=== PATIENT | male | born 1970 | race Caucasian/White ===

== ENCOUNTER 2021-12-15 08:58 | Emergency (ER) | payer OTHER, SELFPAY ==
[2021-12-15 09:04] VITALS: BP 144/84; BP 156/82; PULSE 64; PULSE 98; RESP 20; TEMP 36.6; O2SAT 100; O2SAT 99
--- NOTE | 2021-12-15 09:21 | ED.GENADULT ---
HPI - General Adult General Chief complaint: Nausea/Vomiting/Diarrhea <KATT Ewing - Last Filed: 12/15/21 11:12> Stated complaint: n/v x 5 days <KATT Ewing - Last Filed: 12/15/21 11:12> Time Seen by Provider: 12/15/21 09:21 <KATT Ewing Last Filed: 12/15/21 11:12> Source: patient <KATT Ewing Last Filed: 12/15/21 11:12> Mode of arrival: ambulatory <KATT Ewing Last Filed: 12/15/21 11:12> Limitations: no limitations <KATT Ewing Last Filed: 12/15/21 11:12> History of Present Illness HPI narrative: Patient is a 51 year old male presenting to the emergency department today with nausea and vomiting. Patient states that for the last few days, he has had increased nausea and vomiting and generally feeling unwell. Patient denies any dizziness, lightheadedness, abdominal pain, fever, chills, blurry vision, double vision, loss of vision, chest pain, difficulty breathing, shortness of breath, back pain, night sweats, pain with urination, increased urinary frequency, increased urinary urgency, blood in his urine or stool, syncope or a near syncopal episode, recent trauma or falls, bowel incontinence, bladder incontinence, bowel retention, bladder retention, or any other complaints at this time. <KATT Ewing Last Filed: 12/15/21 11:12> Onset (ago): day(s) <KATT Ewing Last Filed: 12/15/21 11:12> Treatments prior to arrival: none <KATT Ewing Last Filed: 12/15/21 11:12> Related Data Home medications: Previous Rx's Medication Instructions Recorded ondansetron 4 mg disintegrating 4 mg PO Q8H 3 Days #9 tab 12/15/21 tablet <KATT Ewing Last Filed: 12/15/21 11:12> Allergies/adverse reactions: Allergies Allergy/AdvReac Type Severity Reaction Status Date / Time No Known Allergies Allergy Verified 12/15/21 09:22 <KATT Ewing Last Filed: 12/15/21 11:12> Review of Systems Constitutional: Constitutional: Reports no additional constitutional complaints, Denies chills, Denies fever(s) and Denies night sweats <KATT Ewing Last Filed: 12/15/21 11:12> Eyes: Eyes: Reports no additional eye complaints, Denies blurry vision, Denies change in vision, Denies diplopia, Denies eye discharge, Denies loss of vision and Denies eye pain <KATT Ewing Last Filed: 12/15/21 11:12> ENT: Denies dizziness <KATT Ewing - Last Filed: 12/15/21 11:12> Cardiovascular: Cardiovascular: Reports no additional cardiovascular complaints, Denies chest pain, Denies lightheadedness, Denies Loss of Consciousness and Denies dyspnea <KATT Ewing - Last Filed: 12/15/21 11:12> Respiratory: Respiratory: Reports no additional respiratory complaints and Denies dyspnea <KATT Ewing Last Filed: 12/15/21 11:12> Gastrointestinal: Gastrointestinal: Reports no additional gastrointestinal complaints, Denies abdominal pain, Denies melena, Denies hematochezia, Denies change in bowel habits, Denies change in stool character, Reports nausea and Reports vomiting <KATT Ewing - Last Filed: 12/15/21 11:12> Genitourinary: Genitourinary: Reports no additional male genitourinary complaints, Denies hematuria, Denies oliguria, Denies difficulty urinating, Denies dysuria, Denies urinary frequency, Denies urinary hesitancy, Denies urinary incontinence and Denies urinary urgency <KATT Ewing Last Filed: 12/15/21 11:12> Musculoskeletal: Musculoskeletal: Reports no additional musculoskeletal complaints, Denies numbness and Denies tingling <KATT Ewing Last Filed: 12/15/21 11:12> Neurologic: Denies dizziness, Denies loss of vision, Denies numbness and Denies tingling <KATT Ewing Last Filed: 12/15/21 11:12> Psychiatric: Psychiatric: Reports no additional psychiatric complaints <KATT Ewing Last Filed: 12/15/21 11:12> Endocrine: Endocrine: Reports no additional endocrine complaints <KATT Ewing - Last Filed: 12/15/21 11:12> Hematologic/Lymphatic: Hematologic/Lymphatic: Reports no additional hematologic/lymphatic complaints <KATT Ewing - Last Filed: 12/15/21 11:12> Allergic/Immunologic: Allergic/Immunologic: Reports no additional allergic/immunologic complaints <KATT Ewing - Last Filed: 12/15/21 11:12> PMFSH Past Medical History Attestation statement: The following information was validated with the patient. <KATT Ewing - Last Filed: 12/15/21 11:12> Source: old records reviewed <KATT Ewing - Last Filed: 12/15/21 11:12> Medical History: Medical History No known health problems No known health problems <KATT Ewing - Last Filed: 12/15/21 11:12> Social History Social History: Social History Patient Tobacco Use Status: Current everyday Tobacco user Smoked in Last 30 Days: Yes Use of substances other than those prescribed or required for medical reasons: Yes Substance Use Type: Heroin Advance Directives: No Advance Directives Information Provided: No <KATT Ewing - Last Filed: 12/15/21 11:12> Physical Exam ED Vital Signs: Vital Signs - 24 hr 12/15/21 09:04 Temperature 97.9 F Pulse Rate 64 Respiratory Rate 20 Blood Pressure 144/84 H Pulse Oximetry 100 BMI result Body Mass Index 20.0 <KATT Ewing - Last Filed: 12/15/21 11:12> Const General: cooperative, no acute distress, alert and awake <KATT Ewing - Last Filed: 12/15/21 11:12> Nutritional Appearance: well nourished <KATT Ewing - Last Filed: 12/15/21 11:12> Orientation/consciousness: patient oriented x3 <KATT Ewing - Last Filed: 12/15/21 11:12> Limitations: no limitations <KATT Ewing - Last Filed: 12/15/21 11:12> HENMT Head: Yes normal to inspection and Yes atraumatic <Kaci Steel OR - Last Filed: 12/15/21 11:12> Ears: hearing grossly normal bilaterally and external ears normal <Kaci Steel OR - Last Filed: 12/15/21 11:12> General nose exam: Normal external nose present, no nasal discharge noted and no epistaxis <Kaci Steel OR - Last Filed: 12/15/21 11:12> Face and sinus: Yes normal facial exam, No abrasion and No laceration <Kaci Steel OR - Last Filed: 12/15/21 11:12> Mouth: Normal oral and palatal mucosa present, no drooling and no muffled voice <Kaci Gradykirit OR - Last Filed: 12/15/21 11:12> Eyes General: appearance normal, both eyes and all related structures <Kaci Steel OR - Last Filed: 12/15/21 11:12> Periorbital: periorbital findings normal <Kaci Steel OR - Last Filed: 12/15/21 11:12> Eyelids: Yes eyelids normal <Kaci Steel OR - Last Filed: 12/15/21 11:12> Conjunctivae: conjunctivae normal <Kaci Gradykirit OR - Last Filed: 12/15/21 11:12> Pupils: Equal, round and reactive pupils present <Kaci Steel OR - Last Filed: 12/15/21 11:12> EOM: EOMs intact bilaterally <Kaci Gradykirit OR - Last Filed: 12/15/21 11:12> Neck Neck: Yes normal visual inspection, Yes full ROM and Yes no lymphadenopathy <Kaci Gradykirit OR - Last Filed: 12/15/21 11:12> Chest Chest palpation & inspection: normal inspection of the chest <Kaci GradyKATT beth - Last Filed: 12/15/21 11:12> Resp Effort & Inspection: normal respiratory effort and able to speak in complete sentences <Kaci GradyKATT beth - Last Filed: 12/15/21 11:12> Auscultation: clear to auscultation bilaterally <Kacisaurav GradyKATT beth - Last Filed: 12/15/21 11:12> Cardio Rate: regular rate <KATT Ewing Last Filed: 12/15/21 11:12> Rhythm: regular rhythm <Kaci SteelKATT - Last Filed: 12/15/21 11:12> GI Inspection: Yes normal to inspection <Kaci SteelKATT - Last Filed: 12/15/21 11:12> Neuro General: patient oriented x3 and moves all extremities <Kaci SteelKATT - Last Filed: 12/15/21 11:12> Cranial nerves: Yes Equal, round and reactive pupils present <Kaci SteelKATT - Last Filed: 12/15/21 11:12> Cognition (Neuro): normal cognition <Kaci SteelKATT - Last Filed: 12/15/21 11:12> Motor exam (neuro): 5/5 motor strength present throughout <Kaci SteelKATT - Last Filed: 12/15/21 11:12> Sensory Exam: Normal double simultaneous stimulation for sensation <Kaci GradyKATT beth - Last Filed: 12/15/21 11:12> Coordination: [id number] test normal <Kaci Steel OR - Last Filed: 12/15/21 11:12> Extrem General: Yes normal to inspection, Yes full ROM and Yes capillary refill normal <Kaci GradyKATT beth - Last Filed: 12/15/21 11:12> Psych Appearance: grossly normal <Kaci SteelKATT - Last Filed: 12/15/21 11:12> Mental Status: mental status grossly normal <Kaci GradyKATT beth - Last Filed: 12/15/21 11:12> Affect: normal affect <Kaci GradyKATT beth - Last Filed: 12/15/21 11:12> Attitude: cooperative <Kaci GradyKATT beth - Last Filed: 12/15/21 11:12> Thought process: Normal thought process present <Kacisaurav GradyKATT beth - Last Filed: 12/15/21 11:12> Thought content: Normal thought content present <Kaci GradyKATT beth - Last Filed: 12/15/21 11:12> Insight: Good insight present (Psych) <Kacisaurav GradyKATT beth - Last Filed: 12/15/21 11:12> Medical Decision Making MDM Narrative Medical decision making narrative: Patient is a 51 year old male presenting to the emergency department today with nausea and vomiting. Patient's physical exam was unremarkable. Patient's blood work was unremarkable. Patient's EKG was unremarkable. Patient's rapid Influenza was positive. I explained my physical exam findings as well as all test results to the patient. I answered all questions asked by the patient. Patient received IV fluids and IV Zofran which he stated helped his symptoms significantly. I stressed the importance of the patient taking his medication as prescribed. I stressed the importance of the patient following up with his primary care provider. I stressed the importance of the patient returning to the emergency department immediately if his symptoms were to worsen or if he were to develop any dizziness, shortness of breath, difficulty breathing, chest pain, blurry vision, loss of vision, nausea, vomiting, abdominal pain, fever, chills, back pain, or any other complaints. Patient verbalized agreement and understanding with this treatment plan and discharge. <KATT Ewing - Last Filed: 12/15/21 11:12> Differential Diagnosis Differential Diagnosis: influenza, nausea <KATT Ewing - Last Filed: 12/15/21 11:12> Medical Records Medical records reviewed: Yes I reviewed the patient's medical records. <KATT Ewing - Last Filed: 12/15/21 11:12> Lab Data Lab results reviewed: Yes I reviewed the patient's lab results. <KATT Ewing - Last Filed: 12/15/21 11:12> Result diagrams: : 12/15/21 10:11 12/15/21 09:40 <KATT Ewing - Last Filed: 12/15/21 11:12> Labs: Lab Results 12/15/21 12/15/21 12/15/21 Range/Units 09:40 09:40 09:40 WBC (4.8-10.8) X10*3/uL RBC (4.60-5.80) X10*6/uL Hgb (14.0-18.0) g/dl Hct (42.0-52.0) % MCV (80.0-98.0) fL MCH (27.0-33.0) pg MCHC (31.0-36.0) g/dl RDW (11.0-16.0) % Plt Count (160-400) X10*3/uL MPV (9.4-12.4) fL Immature Gran % (Auto) (0.0-0.4) % Neut % (Auto) (45-73) % Lymph % (Auto) (20-40) % [place] % (Auto) (2-11) % Eos % (Auto) (0-4) % Baso % (Auto) (0-2) % Lymph # (Auto) (1.2-4.9) X10*3/uL [place] # (Auto) (0.1-1.2) X10*3/uL Eos # (Auto) (0.0-0.4) X10*3/uL Baso # (Auto) (0.0-0.2) X10*3/uL Abs Immat Gran (auto) (0.00-0.03) X10*3/uL Absolute Neuts (auto) (2.0-8.3) x10*3/uL Absolute Nucleated RBC (0.0-0.012) X10*3/uL Nucleated RBC % (auto) (0.0-0.2) /100WBC Sodium 139 (135-145) mmol/L Potassium 4.8 (3.3-5.1) mmol/L Chloride 108 (96-108) mmol/L Carbon Dioxide 23 (22-29) mmol/L Anion Gap 13 (12-20) BUN 10 (9-16) mg/dL Creatinine 0.81 (0.5-1.4) mg/dL Estim Creat Clear Calc 97.9 Estimated GFR > 60 Random Glucose 115 (60-115) mg/dL Lactic Acid (0.5-2.0) mmol/L Calcium 9.2 (8.4-10.2) mg/dL Magnesium 1.8 (1.6-2.6) mg/dL Total Bilirubin 0.3 (0.0-1.0) mg/dL AST 14 (5-37) U/L ALT 14 (0-40) U/L Alkaline Phosphatase 84 (39-117) U/L Troponin I High Sens < 3.5 (<3.5-35.0) ng/L Total Protein 6.5 (6.5-8.0) g/dL Albumin 3.7 (3.5-5.0) g/dL Lipase 15 (8-78) U/L Ethyl Alcohol mg/dL COVID-19 (ANNA) (Negative) COVID-19 Clin Com Influenza Type A (REMI) Positive A (Negative) Influenza Type B (REMI) Negative (Negative) Influenza A & B Note See Note 12/15/21 12/15/21 12/15/21 Range/Units 09:40 10:11 10:11 WBC 9.1 (4.8-10.8) X10*3/uL RBC 4.03 L (4.60-5.80) X10*6/uL Hgb 11.9 L (14.0-18.0) g/dl Hct 35.5 L (42.0-52.0) % MCV 88.1 (80.0-98.0) fL MCH 29.5 (27.0-33.0) pg MCHC 33.5 (31.0-36.0) g/dl RDW 12.0 (11.0-16.0) % Plt Count 236 (160-400) X10*3/uL MPV 10.7 (9.4-12.4) fL Immature Gran % (Auto) 0.2 (0.0-0.4) % Neut % (Auto) 81.6 H (45-73) % Lymph % (Auto) 10.9 L (20-40) % [place] % (Auto) 6.8 (2-11) % Eos % (Auto) 0.3 (0-4) % Baso % (Auto) 0.2 (0-2) % Lymph # (Auto) 1.0 L (1.2-4.9) X10*3/uL [place] # (Auto) 0.6 (0.1-1.2) X10*3/uL Eos # (Auto) 0.0 (0.0-0.4) X10*3/uL Baso # (Auto) 0.0 (0.0-0.2) X10*3/uL Abs Immat Gran (auto) 0.02 (0.00-0.03) X10*3/uL Absolute Neuts (auto) 7.5 (2.0-8.3) x10*3/uL Absolute Nucleated RBC 0.000 (0.0-0.012) X10*3/uL Nucleated RBC % (auto) 0.0 (0.0-0.2) /100WBC Sodium (135-145) mmol/L Potassium (3.3-5.1) mmol/L Chloride (96-108) mmol/L Carbon Dioxide (22-29) mmol/L Anion Gap (12-20) BUN (9-16) mg/dL Creatinine (0.5-1.4) mg/dL Estim Creat Clear Calc Estimated GFR Random Glucose (60-115) mg/dL Lactic Acid 1.1 (0.5-2.0) mmol/L Calcium (8.4-10.2) mg/dL Magnesium (1.6-2.6) mg/dL Total Bilirubin (0.0-1.0) mg/dL AST (5-37) U/L ALT (0-40) U/L Alkaline Phosphatase (39-117) U/L Troponin I High Sens (<3.5-35.0) ng/L Total Protein (6.5-8.0) g/dL Albumin (3.5-5.0) g/dL Lipase (8-78) U/L Ethyl Alcohol mg/dL COVID-19 (ANNA) Negative (Negative) COVID-19 Clin Com See Note Influenza Type A (REMI) (Negative) Influenza Type B (REMI) (Negative) Influenza A & B Note 12/15/21 Range/Units 10:11 WBC (4.8-10.8) X10*3/uL RBC (4.60-5.80) X10*6/uL Hgb (14.0-18.0) g/dl Hct (42.0-52.0) % MCV (80.0-98.0) fL MCH (27.0-33.0) pg MCHC (31.0-36.0) g/dl RDW (11.0-16.0) % Plt Count (160-400) X10*3/uL MPV (9.4-12.4) fL Immature Gran % (Auto) (0.0-0.4) % Neut % (Auto) (45-73) % Lymph % (Auto) (20-40) % [place] % (Auto) (2-11) % Eos % (Auto) (0-4) % Baso % (Auto) (0-2) % Lymph # (Auto) (1.2-4.9) X10*3/uL [place] # (Auto) (0.1-1.2) X10*3/uL Eos # (Auto) (0.0-0.4) X10*3/uL Baso # (Auto) (0.0-0.2) X10*3/uL Abs Immat Gran (auto) (0.00-0.03) X10*3/uL Absolute Neuts (auto) (2.0-8.3) x10*3/uL Absolute Nucleated RBC (0.0-0.012) X10*3/uL Nucleated RBC % (auto) (0.0-0.2) /100WBC Sodium (135-145) mmol/L Potassium (3.3-5.1) mmol/L Chloride (96-108) mmol/L Carbon Dioxide (22-29) mmol/L Anion Gap (12-20) BUN (9-16) mg/dL Creatinine (0.5-1.4) mg/dL Estim Creat Clear Calc Estimated GFR Random Glucose (60-115) mg/dL Lactic Acid (0.5-2.0) mmol/L Calcium (8.4-10.2) mg/dL Magnesium (1.6-2.6) mg/dL Total Bilirubin (0.0-1.0) mg/dL AST (5-37) U/L ALT (0-40) U/L Alkaline Phosphatase (39-117) U/L Troponin I High Sens (<3.5-35.0) ng/L Total Protein (6.5-8.0) g/dL Albumin (3.5-5.0) g/dL Lipase (8-78) U/L Ethyl Alcohol < 10 mg/dL COVID-19 (ANNA) (Negative) COVID-19 Clin Com Influenza Type A (REMI) (Negative) Influenza Type B (REMI) (Negative) Influenza A & B Note <KATT Ewing - Last Filed: 12/15/21 11:12> ECG Data Attestation: I personally reviewed and interpreted this ECG as follows: <KATT Ewing - Last Filed: 12/15/21 11:12> Prior ECG tracings: not available for review <KATT Ewing - Last Filed: 12/15/21 11:12> Interpretation: Vent. Rate: 073 BPM ? ? Atrial Rate: 073 BPM P-R Int: 160 ms? QRS Dur: 078 ms QT Int: 440 ms ? ? ? P-R-T Axes: 091 -79 078 degrees QTc Int: 484 ms ? Normal sinus rhythm with sinus arrhythmia Left anterior fascicular block Prolonged QT Abnormal ECG No previous ECGs available DD/ 0 <KATT Ewing - Last Filed: 12/15/21 11:12> Discharge Plan Discharge Clinical Impression: Influenza <KATT Ewing - Last Filed: 12/15/21 11:12> Patient Disposition: Home, Self-Care <KATT Ewing - Last Filed: 12/15/21 11:12> Instructions: Influenza (DC) <KATT Ewing - Last Filed: 12/15/21 11:12> Additional Instructions: Follow up with your primary care provider. Return to the emergency department immediately if your symptoms worsen or if you develop any dizziness, shortness of breath, difficulty breathing, chest pain, blurry vision, loss of vision, nausea, vomiting, abdominal pain, fever, chills, back pain, or any other complaints. <KATT Ewing - Last Filed: 12/15/21 11:12> Prescriptions: New ondansetron 4 mg tablet,disintegrating 4 mg PO Q8H 3 Days Qty: 9 0RF <KATT Ewing - Last Filed: 12/15/21 11:12> Referrals: [facility] [place] Group] [facility] [Provider Group] [facility] [Provider Group] Physician,Unknown J [Primary Care Provider] - (Follow up with your PCP. ) <KATT Ewing - Last Filed: 12/15/21 11:12> Stand Alone Forms: Work/School Release <KATT Ewing - Last Filed: 12/15/21 11:12> Interventions: ED Discharge Assessment Last Done: 12/15/21 11:02 <KATT Ewing - Last Filed: 12/15/21 11:12> Discharge Date/Time: 12/15/21 11:03 <KATT Ewing - Last Filed: 12/15/21 11:12> Print Language: Vietnamese <KATT Ewing - Last Filed: 12/15/21 11:12>
--- NOTE | 2021-12-15 09:22 | ECG_ITS ---
Test Reason : vomiting Blood Pressure : / mmHG Vent. Rate : 073 BPM Atrial Rate : 073 BPM P-R Int : 160 ms QRS Dur : 078 ms QT Int : 440 ms P-R-T Axes : 091 -79 078 degrees QTc Int : 484 ms Normal sinus rhythm with sinus arrhythmia Left axis deviation Prolonged QT Abnormal ECG No previous ECGs available Referred By: Kaci Steel Electronically Signed By:MISHA BISHOP
[2021-12-15] MEDS: ondansetron HCL 4 MG/2 ML VIAL IVPUSH (09:45)
[2021-12-15] MEDS: 0.9 % Sodium Chloride 1,000 ML 999 ML IVCONT (09:45)
[2021-12-15 10:01] LABS: COVID-19 Test Negative (Negative)
[2021-12-15 10:09] LABS: Influenza A Positive (Negative); Influenza B2 Negative (Negative)
[2021-12-15 10:10] LABS: Troponin-I High Sensitivity < 3.5 ng/L (<3.5-35.0)
[2021-12-15 10:18] LABS: MANUAL DIFF FLAG NO
[2021-12-15 10:23] LABS: Basophils Percent Auto 0.2 % (0-2); Eosinophils Percent Auto 0.3 % (0-4); Hematocrit 35.5 % (42.0-52.0); Hemoglobin 11.9 g/dl (14.0-18.0); Imm Gran Abs Auto 0.02 X10*3/uL (0.00-0.03); Imm Gran Pct Auto 0.2 % (0.0-0.4); Lymphocytes Percent Auto 10.9 % (20-40); Mean Corpuscular HGB Conc 33.5 g/dl (31.0-36.0); Mean Corpuscular Hemoglobin 29.5 pg (27.0-33.0); Mean Corpuscular Volume 88.1 fL (80.0-98.0); Mean Platelet Volume 10.7 fL (9.4-12.4); Monocytes Absolute Auto 0.6 X10*3/uL (0.1-1.2); Monocytes Percent Auto 6.8 % (2-11); Neutrophils Absolute Auto 7.5 x10*3/uL (2.0-8.3); Neutrophils Percent Auto 81.6 % (45-73); Platelet Count 236 X10*3/uL (160-400); Red Blood Count 4.03 X10*6/uL (4.60-5.80); White Blood Count 9.1 X10*3/uL (4.8-10.8)
[2021-12-15 10:31] LABS: Lactic Acid 1.1 mmol/L (0.5-2.0)
[2021-12-15 10:33] LABS: Ethanol < 10 mg/dL
[2021-12-15 10:34] LABS: Alanine Aminotransferase 14 U/L (0-40); Albumin Level 3.7 g/dL (3.5-5.0); Alkaline Phosphatase 84 U/L (39-117); Anion Gap 13 (12-20); Aspartate Amino Transferase 14 U/L (5-37); Bilirubin Total 0.3 mg/dL (0.0-1.0); Blood Urea Nitrogen 10 mg/dL (9-16); Calcium 9.2 mg/dL (8.4-10.2); Carbon Dioxide 23 mmol/L (22-29); Chloride 108 mmol/L (96-108); Creatinine Clr Calc Pharmacy 97.9; Estimated Glomerular Filt Rate > 60; Glucose Random 115 mg/dL (60-115); Lipase 15 U/L (8-78); Magnesium 1.8 mg/dL (1.6-2.6); Potassium 4.8 mmol/L (3.3-5.1); Sodium 139 mmol/L (135-145); Total Protein 6.5 g/dL (6.5-8.0)
== END 2021-12-15 11:03 | disposition home or self-care (01) ==
PROVIDERS: Physician Assistant Medical; Emergency Provider Emergency Medicine
DX: J11.1 Influenza due to unidentified influenza virus with other respiratory manifestations (principal); R11.2 Nausea with vomiting, unspecified; F17.200 Nicotine dependence, unspecified, uncomplicated; F11.90 Opioid use, unspecified, uncomplicated; Z20.822 Contact with and (suspected) exposure to COVID-19; Z71.6 Tobacco abuse counseling; Z79.899 Other long term (current) drug therapy
CPT/HCPCS: 80053; 82077; 83605; 83690; 83735; 84484; 85025; 87040; 87502; 87635; 93005; 96361; 96374; 99284; J2405